=== PATIENT | male | born 1985 | race African-American/Black ===

== ENCOUNTER 2017-06-28 17:47 | Emergency (ER) | payer OTHER ==
[~2017-06-28] VITALS: Ht 177.8 cm; Wt 67.6 kg
[2017-06-28] MEDS ORDERED: Famotidine 20 MG/ 2ML VIAL IVP ONE (18:15)
[2017-06-28] MEDS ORDERED: Pantoprazole Inj IV ONE (18:15)
[2017-06-28 18:58] LABS: BASOPHILS % (AUTO) 1.6 % (0.0-2.0); EOSINOPHILS % (AUTO) 1.6 % (0.0-3.0); LYMPHOCYTES % (AUTO) 41.2 % (20.0-45.0); MEAN CORPUSCULAR HEMOGLOBIN 31.9 PG (27.0-31.0); MEAN CORPUSCULAR VOLUME 91 FL (80-99); MEAN PLATELET VOLUME 6.7 FL (6.5-10.1); MONOCYTES % (AUTO) 7.8 % (1.0-10.0); NEUTROPHILS % (AUTO) 47.8 % (45.0-75.0); PLATELET COUNT 160 K/UL (150-450); RED BLOOD COUNT 4.39 M/UL (4.70-6.10); RED CELL DISTRIBUTION WIDTH 11.6 % (11.6-14.8); WHITE BLOOD COUNT 6.2 K/UL (4.8-10.8)
[2017-06-28 18:59] LABS: APPEARANCE,URINE CLEAR; KETONES,URINE NEGATIVE (NEGATIVE); LEUKOCYTE ESTERASE ,URINE NEGATIVE (NEGATIVE); NITRITE,URINE NEGATIVE (NEGATIVE); PH,URINE 6 (4.5-8.0); PROTEIN,URINE NEGATIVE (NEGATIVE); UROBILINOGEN,URINE NORMAL MG/DL (0.0-1.0)
[2017-06-28 19:09] LABS: PROTHROMBIN TIME 10.9 SEC (9.30-11.50)
[2017-06-28 19:14] LABS: ALANINE AMINOTRANSFERASE 15 U/L (3-41); ALBUMIN/GLOBULIN RATIO 1.4 (1.0-2.7); ANION GAP 9 (5-15); ASPARTATE AMINO TRANSFERASE 21 U/L (5-40); CALCIUM 9.5 mg/dL (8.6-10.2); CARBON DIOXIDE 28 mEQ/L (20-30); CHLORIDE 101 mEQ/L (98-107); CREATININE 1.3 mg/dL (0.7-1.2); GLOMERULAR FILTRATION RATE > 60 mL/min (>60); HEMOLYSIS 6; LIPASE 38 U/L (< 60); POTASSIUM 4.1 mEQ/L (3.4-4.9); SODIUM 138 mEQ/L (135-145); TOTAL PROTEIN 7.2 g/dL (6.6-8.7)
[2017-06-28 19:20] VITALS: BP 126/78
[2017-06-28] MEDS ORDERED: MIRALAX119 GM PO (20:25)
[2017-06-28] MEDS ORDERED: COLACE100 MG ORAL (20:25)
[2017-06-28 20:31] VITALS: BP 126/78
--- NOTE | 2017-06-28 21:58 | Emergency Room Report ---
History of Present Illness General Chief Complaint: Abdominal Pain Source: Patient Present Illness HPI The patient is a 32-year-old male who denies any medical history presenting for abdominal pain. He states that he has had right lower abdominal pain for the past month. he does admit to intermittent constipation and has been using fiber supplements. He denies any known provoking or alleviating factors. It has been constant 8/10 dull ache. He denies any other symptoms including nausea, vomiting, fever, chills, back pain, dysuria, hematuria Allergies: Coded Allergies: No Known Allergies (Unverified , 06/28/17) Patient History Past Medical History: see triage record Pertinent Family History: none Reviewed Nursing Documentation: PMH: Agreed, PSxH: Agreed Nursing Documentation-PMH Past Medical History: No Stated History Review of Systems All Other Systems: negative except mentioned in HPI Physical Exam Vital Signs Date Time Temp Pulse Resp B/P (MAP) Pulse Ox O2 Delivery O2 Flow Rate FiO2 06/28/17 17:50 97.9 67 20 126/78 99 Room Air Sp02 EP Interpretation: reviewed, normal General Appearance: no apparent distress, alert, GCS 15, non-toxic Head: normocephalic, atraumatic Eyes: bilateral eye normal inspection, bilateral eye PERRL ENT: hearing grossly normal, normal pharynx, no angioedema, normal voice Respiratory: chest non-tender, lungs clear, normal breath sounds, speaking full sentences Cardiovascular #1: regular rate, rhythm, no edema Gastrointestinal: normal bowel sounds, non tender, soft, non-distended, no guarding, no rebound Rectal: deferred Musculoskeletal: back normal, gait/station normal, normal range of motion, non- tender Neurologic: alert, oriented x3, responsive, motor strength/tone normal, sensory intact, speech normal Psychiatric: judgement/insight normal, memory normal, mood/affect normal, no suicidal/homicidal ideation Skin: normal color, no rash, warm/dry, well hydrated Medical Decision Making PA Attestation Dr. louis is my supervising physician. Patient management was discussed with my supervising physician Diagnostic Impression: Primary Impression: Constipation Qualified Codes: K59.00 - Constipation, unspecified ER Course The patient is a 32-year-old male presenting for abdominal pain Differential diagnoses considered include but not limited to gastritis, pancreatitis, appendicitis, UTI, constipation,, and others PE: Afebrile. NAD Abdomen is soft and nontender. Nondistended. Normal bowel sounds. CVA tenderness Labs unremarkable. CT: No appendicitis. Findings consistent with constipation The patient was informed of these results and is given prescription for Colace and MiraLAX. He will follow up with primary doctor. ER precautions are given Laboratory Tests Test 06/28/17 18:30 White Blood Count 6.2 K/UL (4.8-10.8) Red Blood Count 4.39 M/UL (4.70-6.10) L Hemoglobin 14.0 G/DL (14.2-18.0) L Hematocrit 40.1 % (42.0-52.0) L Mean Corpuscular Volume 91 FL (80-99) Mean Corpuscular Hemoglobin 31.9 PG (27.0-31.0) H Mean Corpuscular Hemoglobin Concent 35.0 G/DL (32.0-36.0) Red Cell Distribution Width 11.6 % (11.6-14.8) Platelet Count 160 K/UL (150-450) Mean Platelet Volume 6.7 FL (6.5-10.1) Neutrophils (%) (Auto) 47.8 % (45.0-75.0) Lymphocytes (%) (Auto) 41.2 % (20.0-45.0) Monocytes (%) (Auto) 7.8 % (1.0-10.0) Eosinophils (%) (Auto) 1.6 % (0.0-3.0) Basophils (%) (Auto) 1.6 % (0.0-2.0) Prothrombin Time 10.9 SEC (9.30-11.50) Prothrombin Time INR 1.0 (0.9-1.1) PTT 31 SEC (23-33) Urine Color Pale yellow Urine Appearance Clear Urine pH 6 (4.5-8.0) Urine Specific [place] 1.020 (1.005-1.035) Urine Protein Negative (NEGATIVE) Urine Glucose (UA) Negative (NEGATIVE) Urine Ketones Negative (NEGATIVE) Urine Occult Blood Negative (NEGATIVE) Urine Nitrite Negative (NEGATIVE) Urine Bilirubin Negative (NEGATIVE) Urine Urobilinogen Normal MG/DL (0.0-1.0) Urine Leukocyte Esterase Negative (NEGATIVE) Sodium Level 138 mEQ/L (135-145) Potassium Level 4.1 mEQ/L (3.4-4.9) Chloride Level 101 mEQ/L (98-107) Carbon Dioxide Level 28 mEQ/L (20-30) Anion Gap 9 (5-15) Blood Urea Nitrogen 18 mg/dL (7-23) Creatinine 1.3 mg/dL (0.7-1.2) H Estimate Glomerular Filtration Rate > 60 mL/min (>60) Glucose Level 89 mg/dL (74-106) Calcium Level 9.5 mg/dL (8.6-10.2) Total Bilirubin 0.2 mg/dL (0.0-1.2) Aspartate Amino Transferase (AST) 21 U/L (5-40) Alanine Aminotransferase (ALT) 15 U/L (3-41) Alkaline Phosphatase 112 U/L (40-129) Total Protein 7.2 g/dL (6.6-8.7) Albumin 4.2 g/dL (3.5-5.2) Globulin 3.0 g/dL Albumin/Globulin Ratio 1.4 (1.0-2.7) Lipase 38 U/L (< 60) Lab Results Impression unremarkable CT/MRI/US Diagnostic Results CT/MRI/US Diagnostic Results : Imaging Test Ordered: CT abd/pelvis Impression No appendicitis. Findings consistent with constipation Last Vital Signs Date Time Temp Pulse Resp B/P (MAP) Pulse Ox O2 Delivery O2 Flow Rate FiO2 06/28/17 19:20 97.9 65 20 126/78 99 Room Air Status: improved Disposition: HOME, SELF-CARE Condition: Improved Scripts Docusate Sodium* (COLACE*) 100 Mg Capsule 100 MG ORAL DAILY, #7 CAP Prov: TERZIAN,APARNA P.A. 06/28/17 Polyethylene Glycol 3350 (MIRALAX) 119 Gm Powder 17 GM PO DAILY, #119 GM Prov: TERZIAN,APARNA P.A. 06/28/17 Referrals: Moe MUÑOZ,REFERRING (PCP) Patient Instructions: Constipation, Adult, Abdominal Pain, Adult Additional Instructions: I discussed my findings with the patient. All questions and concerns have been answered. Treatment and medication compliance have been addressed. I advised the patient that they need to follow up with PMD in 3-5 days. Return to ED if symptoms worsen, new symptoms arise, or if needed for any reason. Patient verbalized understanding of discharge instructions. APARNA MANN Jun 28, 2017 21:58
--- NOTE | 2017-06-29 08:46 | Diagnostic Imaging Report ---
Clinical Indication: Right lower quadrant pain Technique: No oral contrast utilized, per emergency room physician request IV administration nonionic contrast. Venous phase spiral acquisition obtained through the abdomen and pelvis. Multiplanar reconstructions were generated. Total dose length product 43 mGycm. CTDIvol(s) 9 mGy. Dose reduction achieved using automated exposure control Comparison: None Findings: The appendix is only equivocally identified. There are no findings to suggest acute appendicitis. No evidence of diverticulosis or diverticulitis. Small bowel loops are fluid-filled. No small bowel distention. No free or loculated intraperitoneal air or fluid. Distal esophagus, stomach, duodenum are unremarkable. The liver demonstrates mild periportal edema. There is distention of the inferior vena cava and hepatic veins, but no cardiomegaly. Gallbladder is contracted. The pancreas, spleen, adrenals, kidneys are unremarkable. No pelvic mass or adenopathy., And symmetric seminal vesicles. The included lung bases are clear. The bones are unremarkable. Impression: Mild periportal edema, significance/etiology uncertain. Possibility of acute hepatitis should be considered. Dilated hepatic veins and inferior vena cava. May be baseline for this patient, as there is no other evidence of right heart failure Fluid-filled small bowel loops, nonspecific finding. Could indicate mild enteritis changes. Correlate with clinical findings No acute process otherwise This agrees with the preliminary interpretation provided overnight by [facility] teleradiology service. The CT scanner at [facility] is accredited by the [employer] and the scans are performed using protocols designed to limit radiation exposure to as low as reasonably achievable to attain images of sufficient resolution adequate for diagnostic evaluation.
== END 2017-06-28 20:31 | disposition home or self-care (01) ==
LOC: EMR 18:20
DX: K59.00 Constipation, unspecified (principal); R60.9 Edema, unspecified
CPT/HCPCS: 36415; 74177; 80053; 81003; 83690; 85025; 85610; 85730; 96374; 96375; 99284; C9113; Q9967; S0028

== ENCOUNTER 2017-11-07 09:33 | Emergency (ER) | payer OTHER ==
[~2017-11-07] VITALS: Ht 177.8 cm; Wt 65.8 kg
[~2017-11-07 09:33] MED LIST: COLACE100 MG ORAL; MIRALAX119 GM PO
[2017-11-07] MEDS ORDERED: NKM (09:44)
[2017-11-07 10:17] LABS: APPEARANCE,URINE CLEAR; BILIRUBIN, URINE NEGATIVE (NEGATIVE); COLOR,URINE PALE YELLOW; GLUCOSE, URINE (UA) NEGATIVE (NEGATIVE); KETONES,URINE NEGATIVE (NEGATIVE); LEUKOCYTE ESTERASE ,URINE NEGATIVE (NEGATIVE); NITRITE,URINE NEGATIVE (NEGATIVE); PH,URINE 7 (4.5-8.0); PROTEIN,URINE NEGATIVE (NEGATIVE); UROBILINOGEN,URINE NORMAL MG/DL (0.0-1.0)
[2017-11-07 10:43] LABS: BASOPHILS % (AUTO) 0.7 % (0.0-2.0); EOSINOPHILS % (AUTO) 4.7 % (0.0-3.0); HEMATOCRIT 44.9 % (42.0-52.0); HEMOGLOBIN 15.2 G/DL (14.2-18.0); MEAN CORPUSCULAR VOLUME 90 FL (80-99); MONOCYTES % (AUTO) 5.5 % (1.0-10.0); NEUTROPHILS % (AUTO) 51.1 % (45.0-75.0); PLATELET COUNT 149 K/UL (150-450); RED BLOOD COUNT 4.97 M/UL (4.70-6.10); RED CELL DISTRIBUTION WIDTH 11.3 % (11.6-14.8); WHITE BLOOD COUNT 5.9 K/UL (4.8-10.8)
[2017-11-07 10:49] LABS: INR 1.1 (0.9-1.1)
[2017-11-07 10:56] LABS: ANION GAP 6 mmol/L (5-15); BLOOD UREA NITROGEN 9 mg/dL (7-18); CALCIUM 9.4 MG/DL (8.5-10.1); CARBON DIOXIDE 29 MMOL/L (21-32); CHLORIDE 103 MMOL/L (98-107); CREATININE 1.2 MG/DL (0.55-1.30); POTASSIUM 4.2 MMOL/L (3.5-5.1); SODIUM 138 MMOL/L (136-145)
[2017-11-07 11:00] LABS: ALANINE AMINOTRANSFERASE 29 U/L (12-78); ALBUMIN 4.2 G/DL (3.4-5.0); ALBUMIN/GLOBULIN RATIO 1.1 (1.0-2.7); ALKALINE PHOSPHATASE 87 U/L (46-116); ASPARTATE AMINO TRANSFERASE 39 U/L (15-37); BILIRUBIN,TOTAL 0.4 MG/DL (0.2-1.0)
[2017-11-07 11:41] VITALS: BP 107/77
--- NOTE | 2017-11-07 13:49 | Emergency Room Report ---
History of Present Illness General Chief Complaint: Abdominal Pain Source: Patient Present Illness HPI Patient with abdominal pain - mostly lower - both in rectum and base of penis. Intermittent. Considerations for hemorrhoids. No rectal bleeding. Has had some itching around rectum, but no bumps or anal pain. Occasionally strain with stool and sy worse. No dysuria or d/c. Somewhat worse with ejaculation. No rectal sex. Increased masturbation over this period of time. No fevers, diarrhea. No hematuria. No h/o stones. Dx prior visit with constipation. Has had some episodes of chest pain associated with eating. This better after treatment for H pylori. Still some episodes. No NV. No dizziness. Allergies: Coded Allergies: No Known Allergies (Unverified , 06/28/17) Patient History Past Medical History: see triage record Social History: Denies: smoking Reviewed Nursing Documentation: PMH: Agreed, PSxH: Agreed Review of Systems All Other Systems: negative except mentioned in HPI Physical Exam Vital Signs Date Time Temp Pulse Resp B/P (MAP) Pulse Ox O2 Delivery O2 Flow Rate FiO2 11/07/17 09:36 97.5 70 16 122/80 95 Room Air Sp02 EP Interpretation: reviewed, normal General Appearance: well appearing, no apparent distress, GCS 15 Head: normocephalic Eyes: bilateral eye normal inspection, bilateral eye PERRL ENT: moist mucus membranes Neck: supple Respiratory: lungs clear, normal breath sounds Cardiovascular #1: regular rate, rhythm Cardiovascular #2: 2+ radial (R) Gastrointestinal: normal inspection, normal bowel sounds, non tender, no mass, non-distended, scaphoid Rectal: normal rectal tone, heme negative stool, prostate non-tender, other - no hemrrhoids Genitourinary: normal inspection, penis normal, scrotum normal Musculoskeletal: back normal, gait/station normal, normal range of motion Neurologic: alert, oriented x3, grossly normal Psychiatric: mood/affect normal - slightly anxious Skin: normal inspection, warm/dry Medical Decision Making Diagnostic Impression: Primary Impression: Prostatitis Qualified Codes: N41.9 - Inflammatory disease of prostate, unspecified ER Course Patient presents with chronic rectal and lower abdominal pain (other problem of epigastric discomfort with eating). Ddx: hemorrhoids, constipation, fissure, prostatitis (more likely chronic), UTI, diverticulitis. No evidence of hernia. Evaluation with xrays, labs. Treatment with IV hydration, pepcid, zofran, tyelnol. WBC and H/H normal (elev eos). Normal CMP and lipase. Nl UA. Films unremarkable. Improved with treatment. Symptoms and findings most c/w prostatitis. Stated need for evaluation by urologist/ PMD. Patient stable for outpatient observation and treatment. Laboratory Tests Test 11/07/17 10:09 11/07/17 10:30 Urine Color Pale yellow Urine Appearance Clear Urine pH 7 (4.5-8.0) Urine Specific [place] 1.015 (1.005-1.035) Urine Protein Negative (NEGATIVE) Urine Glucose (UA) Negative (NEGATIVE) Urine Ketones Negative (NEGATIVE) Urine Occult Blood Negative (NEGATIVE) Urine Nitrite Negative (NEGATIVE) Urine Bilirubin Negative (NEGATIVE) Urine Urobilinogen Normal MG/DL (0.0-1.0) Urine Leukocyte Esterase Negative (NEGATIVE) White Blood Count 5.9 K/UL (4.8-10.8) Red Blood Count 4.97 M/UL (4.70-6.10) Hemoglobin 15.2 G/DL (14.2-18.0) Hematocrit 44.9 % (42.0-52.0) Mean Corpuscular Volume 90 FL (80-99) Mean Corpuscular Hemoglobin 30.5 PG (27.0-31.0) Mean Corpuscular Hemoglobin Concent 33.8 G/DL (32.0-36.0) Red Cell Distribution Width 11.3 % (11.6-14.8) L Platelet Count 149 K/UL (150-450) L Mean Platelet Volume 8.0 FL (6.5-10.1) Neutrophils (%) (Auto) 51.1 % (45.0-75.0) Lymphocytes (%) (Auto) 38.0 % (20.0-45.0) Monocytes (%) (Auto) 5.5 % (1.0-10.0) Eosinophils (%) (Auto) 4.7 % (0.0-3.0) H Basophils (%) (Auto) 0.7 % (0.0-2.0) Prothrombin Time 11.7 SEC (9.30-11.50) H Prothrombin Time INR 1.1 (0.9-1.1) PTT 33 SEC (23-33) Sodium Level 138 MMOL/L (136-145) Potassium Level 4.2 MMOL/L (3.5-5.1) Chloride Level 103 MMOL/L (98-107) Carbon Dioxide Level 29 MMOL/L (21-32) Anion Gap 6 mmol/L (5-15) Blood Urea Nitrogen 9 mg/dL (7-18) Creatinine 1.2 MG/DL (0.55-1.30) Estimate Glomerular Filtration Rate > 60 mL/min (>60) Glucose Level 74 MG/DL (74-106) Calcium Level 9.4 MG/DL (8.5-10.1) Total Bilirubin 0.4 MG/DL (0.2-1.0) Aspartate Amino Transferase (AST) 39 U/L (15-37) H Alanine Aminotransferase (ALT) 29 U/L (12-78) Alkaline Phosphatase 87 U/L (46-116) Total Protein 7.9 G/DL (6.4-8.2) Albumin 4.2 G/DL (3.4-5.0) Globulin 3.7 g/dL Albumin/Globulin Ratio 1.1 (1.0-2.7) Lipase 145 U/L (73-393) Other X-Ray Diagnostic Results Other X-Ray Diagnostic Results : X-Ray ordered: abd # of Views/Limited Vs Complete: 1 View Indication: Other Interpretation: no dislocation, no soft tissue swelling, no fractures, nonspecific bowel gas Last Vital Signs Date Time Temp Pulse Resp B/P (MAP) Pulse Ox O2 Delivery O2 Flow Rate FiO2 11/07/17 14:11 60 18 107/77 Room Air 11/07/17 11:48 97.7 11/07/17 11:41 100 Status: improved Disposition: HOME, SELF-CARE Condition: Improved Scripts Lactulose (LACTULOSE*) 20 Gm/30 Ml Solution 30 ML ORAL BID Y for constipation, #240 ML 0 Refills Prov: Armani Acosta M.D. 11/07/17 Acetaminophen (Tylenol) 325 Mg Tablet 650 MG ORAL Q6H Y for Prn Pain/Headache/Temp > 101, #30 TAB 0 Refills Prov: Armani Acosta M.D. 11/07/17 Famotidine (PEPCID) 20 Mg Tablet 20 MG ORAL DAILY, #20 TAB 0 Refills Prov: Armani Acosta M.D. 11/07/17 Ciprofloxacin Hcl* (CIPROFLOXACIN HCL*) 500 Mg Tablet 500 MG ORAL Q12H, #14 TAB 0 Refills Prov: Armani Acosta M.D. 11/07/17 Referrals: Moe MUÑOZ,REFERRING (PCP) Armani Acosta M.D. Nov 07, 2017 13:49
[2017-11-07] MEDS ORDERED: CIPROFLOXACIN500 M2 ORAL (13:51)
[2017-11-07] MEDS ORDERED: LACTULOSE20 GM/301 ORAL (13:51)
[2017-11-07] MEDS ORDERED: TYLENOL325 MG ORAL (13:51)
[2017-11-07] MEDS ORDERED: PEPCID20 MG ORAL (13:51)
[2017-11-07 14:11] VITALS: BP 107/77
--- NOTE | 2017-11-07 16:07 | Diagnostic Imaging Report ---
Indication: Abdominal pain Technique: Supine view of the abdomen Comparison: none Findings: Bowel gas pattern is unremarkable. No unusual masses or calcifications. Impression: No acute process
== END 2017-11-07 14:13 | disposition home or self-care (01) ==
LOC: EMR 09:53
DX: N41.9 Inflammatory disease of prostate, unspecified (principal)
CPT/HCPCS: 36415; 74018; 80053; 81003; 83690; 85025; 85610; 85730; 96361; 96374; 96375; 99284; J2405; S0028

== ENCOUNTER 2018-07-14 17:06 | Emergency (ER) | payer OTHER ==
[~2018-07-14] VITALS: Ht 177.8 cm; Wt 68.5 kg
[~2018-07-14 17:06] MED LIST changes: +CIPROFLOXACIN500 M2 ORAL; +LACTULOSE20 GM/301 ORAL; +NKM; +PEPCID20 MG ORAL; +TYLENOL325 MG ORAL
[2018-07-14 17:37] VITALS: BP 119/78
[2018-07-14 18:23] LABS: APPEARANCE,URINE CLEAR; BILIRUBIN, URINE NEGATIVE (NEGATIVE); COLOR,URINE PALE YELLOW; GLUCOSE, URINE (UA) NEGATIVE (NEGATIVE); KETONES,URINE NEGATIVE (NEGATIVE); LEUKOCYTE ESTERASE ,URINE NEGATIVE (NEGATIVE); NITRITE,URINE NEGATIVE (NEGATIVE); PH,URINE 6.5 (4.5-8.0); PROTEIN,URINE NEGATIVE (NEGATIVE); UROBILINOGEN,URINE NORMAL MG/DL (0.0-1.0)
--- NOTE | 2018-07-14 18:26 | Emergency Room Report ---
History of Present Illness General Chief Complaint: Male Urogenital Problems Source: Patient Present Illness HPI 33-year-old male patient presents ER complaining of prostatitis and right sided testicular pain. Patient reports history of prostatitis, previously this ER several months ago. Reports followed up with diesel technology instructor but did not have symptoms at that time shows states "there is nothing they could do" because he was asymptomatic. Reports currently on Cipro from primary care provider, reports right-sided testicular pain. Denies swelling or lesions. Denies dysuria, hematuria, penile discharge. Reports recently assessed for STI, states test were negative. Reports rectal pain perviously, denies rectal pain or constipation at this time. Reports able to pass gas and stool without difficulty. reports pain when he gets an erection but does not ejaculate, states occurred earlier today. Denies blood in stool. Denies difficulty with passing stool. Denies diarrhea. Allergies: Coded Allergies: No Known Allergies (Unverified , 06/28/17) Patient History Past Medical History: see triage record Reviewed Nursing Documentation: PMH: Agreed; PSxH: Agreed Nursing Documentation-PMH Past Medical History: No Stated History Review of Systems All Other Systems: negative except mentioned in HPI Physical Exam Vital Signs Date Time Temp Pulse Resp B/P (MAP) Pulse Ox O2 Delivery O2 Flow Rate FiO2 07/14/18 17:12 98.2 71 18 119/78 100 Room Air 98.2 Sp02 EP Interpretation: reviewed, normal General Appearance: well appearing, no apparent distress, alert, GCS 15, non- toxic Head: normocephalic, atraumatic Eyes: bilateral eye normal inspection, bilateral eye PERRL ENT: hearing grossly normal, normal pharynx, no angioedema, normal voice, uvula midline, moist mucus membranes Neck: full range of motion Respiratory: lungs clear, normal breath sounds, no rhonchi, no respiratory distress, no accessory muscle use, no wheezing, speaking full sentences Cardiovascular #1: regular rate, rhythm, no edema Rectal: prostate non-tender - non-boggy, no palpable masses, other Genitourinary: no CVA tenderness, penis normal - circumcised, prostate normal - nontender, non-boggy, no tender masses, scrotum normal, other - no hernia bilaterally Musculoskeletal: back normal, digits/nails normal, gait/station normal, normal range of motion, non-tender Neurologic: alert, oriented x3, responsive, motor strength/tone normal, sensory intact Psychiatric: mood/affect normal Skin: no rash Lymphatic: no adenopathy Medical Decision Making PA Attestation Dr. Arroyo is my supervising Physician whom patient management has been discussed with. Diagnostic Impression: Primary Impression: Bilateral varicoceles Additional Impression: Hx of prostatitis ER Course Pt. presents to the ED c/o testicular pain and hx of prostatitis. Ddx considered but are not limited to testicular torsion, epididymitis, UTI, testicular cyst, varicocele, hydrocele, inguinal hernia. Vital signs: are WNL, pt. is afebrile ER COURSE: UA negative for acute disease, suspicion for UTI or infection, patient is afebrile, does not require antibiotics, continue complete course of Cipro follow -up with PCP. physical exam shows no tender boggy prostate, UA negative, low suspicion for acute prostatitis. Follow up with prostate specialist. Provided with contact information for urology specialist. Testicular US shows No evidence of mass, torsion or infection. Bilateral varicoceles. Discuss results with the patient. Provided patient with copy of results. Instructed patient to followup with PCP and discuss results of report with patient, discuss need for further treatment and referral. Varicoceles may be causing pain symptoms. advised patient on need for further imaging due to concern for possible underlying etiology of right sided varicocele including but not limited to malignancy or mass. informed patient pain symptoms may be related to not ejaculating during the arousal or prostate. Discuss with urologist. patient reports pain symptoms improved after walking around. Patient reports pain symptoms improvable ER. DISCHARGE: Rx provided for Tylenol for pain At this time pt. is stable for d/c to home. Will provide printed patient care instructions, and any necessary prescriptions. Care plan and follow up instructions have been discussed with the patient prior to discharge. Followup with cost consultant in 3 -5 days. Followup with urologist. Take medications as directed. Patient questions asked and answered. ER precautions given, patient instructed to return to ER immediately for any new or worsening of symptoms including but not limited to fever, nausea, vomiting, worsening of pain. - Please note that this Emergency Department Report was dictated using [facility] [employer] blacksmith technology software, occasionally this can lead to erroneous entry secondary to interpretation by the dictation equipment. CT/MRI/US Diagnostic Results CT/MRI/US Diagnostic Results : Imaging Test Ordered: testicular US Impression No evidence of mass, torsion or infection. Bilateral varicoceles. Last Vital Signs Date Time Temp Pulse Resp B/P (MAP) Pulse Ox O2 Delivery O2 Flow Rate FiO2 07/14/18 17:37 98.2 18 119/78 100 Room Air 98.2 07/14/18 17:12 71 Status: improved Disposition: HOME, SELF-CARE Condition: Stable Scripts Acetaminophen* (TYLENOL EXTRA STRENGTH*) 500 Mg Tablet 500 MG ORAL Q8H PRN for Prn Headache/Temp > 101, #30 TAB 0 Refills Prov: Johan Perez 07/14/18 Patient Instructions: Prostatitis, [id number], Varicocele Additional Instructions: Followup with primary care provider in 3 -5 days. Discuss need for further imaging and referral for right sided varicocele. Likely need CT abdomen pelvis. Discuss referral to specialist. Discuss pain symptoms when not ejaculating. Take medications as directed. Patient questions asked and answered. Take Tylenol for pain. ER precautions given, patient instructed to return to ER immediately for any new or worsening of symptoms. Johan Perez Jul 14, 2018 18:26
--- NOTE | 2018-07-14 20:08 | Diagnostic Imaging Report ---
EXAM: US Scrotum CLINICAL HISTORY: PAIN TECHNIQUE: Real-time ultrasound of the scrotum with color Doppler and image documentation. COMPARISON: No relevant prior studies available. FINDINGS: Right testicle: Right testis measures 4.0 x 3.4 x 2.2 cm. No mass, infection or torsion. Left testicle: Left testis measures 3.8 x 3.1 x 2.2 cm. No mass, infection or torsion. Epididymides: Unremarkable. Scrotum: Bilateral varicoceles. IMPRESSION: No evidence of mass, torsion or infection. Bilateral varicoceles. Critical Value Communications 07/14/18 20:36 Call From [facility] on 07/14 20:36 (-07:00)
[2018-07-14] MEDS ORDERED: TYLENOL EXTRA500 MG ORAL (20:12)
[2018-07-14 20:52] VITALS: BP 116/73
== END 2018-07-14 20:54 | disposition home or self-care (01) ==
LOC: EMR 17:46
DX: I86.1 Scrotal varices (principal)
CPT/HCPCS: 76870; 81003; 99284